=== PATIENT | female | born 1945 | race African-American/Black ===

== ENCOUNTER 2021-11-24 07:51 | Inpatient (IN) | payer MEDICARE, MEDICAID ==
[~2021-11-24] VITALS: Ht 162.6 cm; Wt 77.7 kg
[~2021-11-24 07:51] MED LIST: AMLO10TA80 PO; APIX5TAB MT; ASPI-1497 PO; ATOR40TA70 PO; DOCU-286 MT; LITH150C PO; METO25TA6 MT; NAPR-677 PO; RISP1SOL4 MT; RISP1TAB97 PO; SENN-257 PO; ZOLP10TA2 PO
[2021-11-24 08:37] LABS: BASOPHILS % 0.9 % (0.0-2.0); EOSINOPHILS % 4.8 % (0.0-5.0); HEMATOCRIT. 41.7 % (36.0-48.0); HEMOGLOBIN. 13.3 g/dL (12.0-16.0); LYMPHOCYTES % 23.3 % (20.0-50.0); MEAN CORPUSCULAR HEMOGLOBIN 27.3 pg (28.0-32.0); MEAN CORPUSCULAR VOLUME 85.8 fL (81.0-99.0); MEAN PLATELET VOLUME 10.2 fl (7.4-10.4); MONOCYTES % 10.2 % (2.0-8.0); NEUTROPHILS % 60.8 % (40.0-76.0); PLATELET 202 x1000/uL (130-400); RED BLOOD CELL COUNT 4.86 mill/uL (4.2-5.4); RED CELL DISTRIBUTION WIDTH 15.6 % (11.6-14.6)
[2021-11-24 08:40] LABS: CHLORIDE 110 mEq/L (98-107)
[2021-11-24] MEDS ORDERED: ASPIRIN 81MG TABLET PO NR (12:00)
[2021-11-24] MEDS: ACETAMINOPHEN 325MG TABLET PO NR ×2 (12:07→12:09)
[2021-11-24] MEDS ORDERED: ONDANSETRON HCL 4MG/2ML INJ IV PRN (14:15)
[2021-11-24] MEDS ORDERED: NALOXONE HCL 0.4MG/ML VIAL IV PRN (14:30)
[2021-11-24 15:19] VITALS: BP 130/57
[2021-11-24 16:00] VITALS: BP 130/57
[2021-11-24 18:36] LABS: PROTHROMBIN TIME 11.2 sec (9.6-11.0)
[2021-11-24 20:00] VITALS: BP 118/49
[2021-11-24] MEDS ORDERED: ENOXAPARIN 80MG/0.8ML SYR SUBCUT SCH (20:00)
[2021-11-24 20:40] LABS: CLARITY URINE CLEAR (CLEAR); COLOR URINE YELLOW (YELLOW); KETONES URINE TRACE (NEGATIVE); LEUKOCYTE ESTERASE URINE 1+ (NEGATIVE); NITRITE URINE NEGATIVE (NEGATIVE); OCCULT BLOOD URINE NEGATIVE (NEGATIVE); PROTEIN URINE TRACE (NEGATIVE); SPECIFIC GRAVITY URINE 1.018 (1.005-1.030)
[2021-11-24] MEDS: RISPERIDONE 1MG TABLET PO SCH (21:09)
[2021-11-24] MEDS: METOPROLOL TARTRATE 25MG TABLET PO SCH (21:09)
[2021-11-24] MEDS: ATORVASTATIN CALCIUM 40MG TABLET PO SCH (21:10)
[2021-11-24] MEDS: HYDROCODONE/ACETAMINOPHEN 5/325MG TABLET PO PRN (21:12)
[2021-11-24] MEDS: AMLODIPINE 10MG TABLET PO SCH (21:34)
[2021-11-25] VITALS: BP 126/67
[2021-11-25] MEDS: ZOLPIDEM TARTRATE 5MG TABLET PO PRN (00:36)
[2021-11-25 04:00] VITALS: BP 147/75
[2021-11-25 08:00] VITALS: BP 103/74
[2021-11-25] MEDS: ASPIRIN 81MG TABLET PO SCH ×2 (09:00→09:54)
[2021-11-25] MEDS: METOPROLOL TARTRATE 25MG TABLET PO SCH ×3 (09:00→21:00)
[2021-11-25] MEDS ORDERED: DOCUSATE SODIUM 100MG CAPSULE PO SCH (09:00)
[2021-11-25] MEDS: AMLODIPINE 10MG TABLET PO SCH ×2 (09:00→09:55)
[2021-11-25] MEDS: DOCUSATE SODIUM 250MG CAPSULE PO SCH ×2 (09:00→09:54)
[2021-11-25] MEDS: APIXABAN 5 MG TABLET PO SCH ×2 (09:56→17:41)
[2021-11-25 12:00] VITALS: BP 103/84
[2021-11-25 16:00] VITALS: BP_SYST 101; BP_SYST 104; BP_SYST 112; BP_DIAS 64; BP_DIAS 68
[2021-11-25 20:00] VITALS: BP 125/71
[2021-11-25] MEDS: ATORVASTATIN CALCIUM 40MG TABLET PO SCH ×2 (21:00→22:44)
[2021-11-25] MEDS: RISPERIDONE 1MG TABLET PO SCH ×2 (21:00→22:43)
[2021-11-25] MEDS: LORAZEPAM 2MG/ML CPJ IV PRN (23:28)
[2021-11-26] VITALS: BP 143/74
[2021-11-26] MEDS: ZOLPIDEM TARTRATE 5MG TABLET PO PRN (00:54)
[2021-11-26] MEDS: LORAZEPAM 2MG/ML CPJ IV PRN ×2 (00:57→09:16)
[2021-11-26 04:00] VITALS: BP 148/84
[2021-11-26 08:00] VITALS: BP 173/93
[2021-11-26] MEDS: DOCUSATE SODIUM 250MG CAPSULE PO SCH (09:05)
[2021-11-26] MEDS: ASPIRIN 81MG TABLET PO SCH (09:05)
[2021-11-26] MEDS: METOPROLOL TARTRATE 25MG TABLET PO SCH ×2 (09:05→21:00)
[2021-11-26] MEDS: AMLODIPINE 10MG TABLET PO SCH (09:05)
[2021-11-26] MEDS: APIXABAN 5 MG TABLET PO SCH ×2 (09:05→17:00)
[2021-11-26 12:00] VITALS: BP 116/56
[2021-11-26 16:00] VITALS: BP 122/72
[2021-11-26 20:00] VITALS: BP 168/84
[2021-11-26] MEDS: ATORVASTATIN CALCIUM 40MG TABLET PO SCH (21:00)
[2021-11-26] MEDS: RISPERIDONE 1MG TABLET PO SCH (21:00)
[2021-11-27] VITALS: BP 157/97
[2021-11-27 04:00] VITALS: BP 160/76
[2021-11-27 08:00] VITALS: BP 135/77
[2021-11-27] MEDS: DOCUSATE SODIUM 250MG CAPSULE PO SCH (09:02)
[2021-11-27] MEDS: AMLODIPINE 10MG TABLET PO SCH (09:02)
[2021-11-27] MEDS: ASPIRIN 81MG TABLET PO SCH (09:02)
[2021-11-27] MEDS: APIXABAN 5 MG TABLET PO SCH (09:03)
[2021-11-27] MEDS: METOPROLOL TARTRATE 25MG TABLET PO SCH (09:03)
[2021-11-27] MEDS: LORAZEPAM 2MG/ML CPJ IV PRN (10:45)
[2021-11-27] MEDS: HYDROCODONE/ACETAMINOPHEN 5/325MG TABLET PO PRN (10:56)
[2021-11-27 12:00] VITALS: BP 121/67
[2021-11-27 16:00] VITALS: BP 133/65
[2021-11-27 17:04] VITALS: BP 133/65
[2021-12-07] MEDS ORDERED: MELA5TAB19 MT (18:47)
[2021-12-07] MEDS ORDERED: CRES10 PO (18:47)
[2021-12-07] MEDS ORDERED: ESCI5SOL2 PO (18:47)
[2021-12-07] MEDS ORDERED: GABA-529 PO (18:47)
[2021-12-07] MEDS ORDERED: MOM MT (23:13)
[2021-12-07] MEDS ORDERED: GUAI-1192 PO (23:13)
== END 2021-11-27 19:30 | disposition home or self-care (01) | DRG 74 ==
LOC: ER 08:04 → 7WST 12:22 → ENRESERV 13:51
PROVIDERS: ADMIT Internal Medicine; ATTEND Internal Medicine
DX: G90.8 Other disorders of autonomic nervous system (principal); K80.20 Calculus of gallbladder without cholecystitis without obstruction; K59.00 Constipation, unspecified; E78.00 Pure hypercholesterolemia, unspecified; I48.91 Unspecified atrial fibrillation; F20.9 Schizophrenia, unspecified; F03.90 Unspecified dementia, unspecified severity, without behavioral disturbance, psychotic disturbance, mood disturbance, and anxiety; I11.0 Hypertensive heart disease with heart failure; I50.9 Heart failure, unspecified; I25.10 Atherosclerotic heart disease of native coronary artery without angina pectoris; F17.210 Nicotine dependence, cigarettes, uncomplicated; F31.9 Bipolar disorder, unspecified; Z20.822 Contact with and (suspected) exposure to COVID-19; Z95.1 Presence of aortocoronary bypass graft; Z86.73 Personal history of transient ischemic attack (TIA), and cerebral infarction without residual deficits; Z79.01 Long term (current) use of anticoagulants; Z98.890 Other specified postprocedural states; Z88.8 Allergy status to other drugs, medicaments and biological substances
CPT/HCPCS: 36415; 71045; 73030; 76700; 80053; 81003; 83880; 84484; 85025; 87426; 93005; 93306; 99285; J1650; J2060

== ENCOUNTER 2022-09-13 10:50 | Inpatient (IN) | payer MEDICARE, MEDICAID ==
[~2022-09-13] VITALS: Ht 165.1 cm; Wt 61.7 kg
[~2022-09-13 10:50] MED LIST changes: +ASPI-1406 PO; -ASPI-1497 PO; -ATOR40TA70 PO; +CRES10 PO; +ESCI5SOL2 PO; +FAMO40TA7 PO; +GABA-529 PO; +MELA1TAB51 MT; +MOM MT; -RISP1SOL4 MT; +[UNRECOGNIZED DRUG - CODE] PO
[2022-09-13] MEDS ORDERED: ONDANSETRON HCL 4MG/2ML INJ IV PRN (11:45)
[2022-09-13] MEDS ORDERED: NALOXONE HCL 0.4 MG/ML 1ML VIAL IV PRN (11:45)
[2022-09-13] MEDS ORDERED: HYDROCODONE/ACETAMINOPHEN 5/325MG TABLET PO PRN (11:45)
[2022-09-13] MEDS ORDERED: CLONIDINE 0.1MG TABLET PO PRN (11:45)
[2022-09-13] MEDS ORDERED: DOCUSATE SODIUM 100MG CAPSULE PO PRN (11:45)
[2022-09-13] MEDS ORDERED: IPRATROPIUM/ALBUTEROL 0.5-3(2.5)MG/3ML NEB HHN PRN (11:45)
[2022-09-13] MEDS ORDERED: GUAIFENESIN 200MG/10ML SUGAR FREE UDC PO PRN (11:45)
[2022-09-13] MEDS ORDERED: LORAZEPAM 0.5MG TABLET PO PRN (11:45)
[2022-09-13] MEDS ORDERED: MAGNESIUM/ALUMINUM HYDROXIDE/SIMETHICONE 30ML UDC PO PRN (11:45)
[2022-09-13] MEDS ORDERED: ACETAMINOPHEN 325MG TABLET PO PRN ×2 (11:45)
[2022-09-13 12:00] VITALS: BP 127/74; PULSE 84; RESP 19; TEMP 97.8
[2022-09-13] MEDS ORDERED: LORAZEPAM 2MG/ML CPJ IV NR (16:00)
[2022-09-13] MEDS ORDERED: HALOPERIDOL LACTATE 5MG/ML VIAL IM ONE (16:15)
[2022-09-13] MEDS ORDERED: LORAZEPAM 2MG/ML CPJ IV PRN (17:15)
[2022-09-13] MEDS ORDERED: LORAZEPAM 2MG/ML CPJ IM PRN (17:30)
[2022-09-13] MEDS ORDERED: LORAZEPAM 2MG/ML CPJ IM NR (17:45)
[2022-09-13 20:00] VITALS: BP 156/104; PULSE 101; RESP 19; TEMP 97.8
[2022-09-13] MEDS: ENOXAPARIN 60MG/0.6ML SYR SUBCUT SCH (21:00)
[2022-09-13] MEDS ORDERED: IOHEXOL-300 100 ML BOTTLE ONE (21:13)
[2022-09-13] MEDS: METOPROLOL TARTRATE 25MG TABLET PO SCH (21:48)
[2022-09-13] MEDS: LITHIUM CARBONATE 150 MG CAPSULE PO SCH (21:48)
[2022-09-13] MEDS: RISPERIDONE 1MG TABLET PO SCH (21:48)
[2022-09-13] MEDS: ATORVASTATIN CALCIUM 40MG TABLET PO SCH (21:48)
[2022-09-13] MEDS ORDERED: LACTULOSE 20G/30ML UDC PO SCH (22:00)
[2022-09-14 06:34] LABS: BASOPHILS % 0.2 % (0.0-2.0); EOSINOPHILS % 0.6 % (0.0-5.0); HEMOGLOBIN. 12.8 g/dL (12.0-16.0); LYMPHOCYTES % 8.1 % (20.0-50.0); MEAN CORPUSCULAR HEMOGLOBIN 28.9 pg (28.0-32.0); MEAN PLATELET VOLUME 11.9 fl (7.4-10.4); MONOCYTES % 11.2 % (2.0-8.0); NEUTROPHILS % 79.9 % (40.0-76.0); PLATELET 103 x1000/uL (130-400); RED BLOOD CELL COUNT 4.42 mill/uL (4.2-5.4); RED CELL DISTRIBUTION WIDTH 15.6 % (11.6-14.6)
[2022-09-14 06:56] LABS: CHLORIDE 110 mEq/L (98-107)
[2022-09-14 08:00] VITALS: BP 98/65; PULSE 76; RESP 18; TEMP 96.3
[2022-09-14] MEDS: PANTOPRAZOLE SODIUM 40 MG/VIAL IV SCH (08:51)
[2022-09-14] MEDS: RISPERIDONE 1MG TABLET PO SCH ×2 (08:52→21:45)
[2022-09-14] MEDS: POTASSIUM CHLORIDE 20MEQ/PACKET PO SCH (08:52)
[2022-09-14] MEDS: ENOXAPARIN 60MG/0.6ML SYR SUBCUT SCH ×2 (08:52→21:45)
[2022-09-14] MEDS: AMLODIPINE 10MG TABLET PO SCH (09:00)
[2022-09-14] MEDS: METOPROLOL TARTRATE 25MG TABLET PO SCH ×2 (09:00→21:45)
[2022-09-14] MEDS ORDERED: BISACODYL 5MG TABLET PO PRN (12:00)
[2022-09-14 12:50] LABS: HEPATITIS B SURFACE ANTIGEN NEGATIVE
[2022-09-14] MEDS: DOCUSATE SODIUM 100MG CAPSULE PO SCH ×2 (17:00→18:05)
[2022-09-14] MEDS: ATORVASTATIN CALCIUM 40MG TABLET PO SCH (21:45)
[2022-09-14] MEDS: LITHIUM CARBONATE 150 MG CAPSULE PO SCH (21:45)
[2022-09-15 06:30] LABS: BASOPHILS % 0.2 % (0.0-2.0); EOSINOPHILS % 2.5 % (0.0-5.0); HEMATOCRIT. 35.7 % (36.0-48.0); LYMPHOCYTES % 9.6 % (20.0-50.0); MEAN CORPUSCULAR HEMOGLOBIN 28.8 pg (28.0-32.0); MEAN CORPUSCULAR VOLUME 85.8 fL (81.0-99.0); MEAN PLATELET VOLUME 12.6 fl (7.4-10.4); MONOCYTES % 11.1 % (2.0-8.0); NEUTROPHILS % 76.6 % (40.0-76.0); PLATELET 116 x1000/uL (130-400); RED BLOOD CELL COUNT 4.16 mill/uL (4.2-5.4); RED CELL DISTRIBUTION WIDTH 15.1 % (11.6-14.6)
[2022-09-15 08:00] VITALS: BP 146/71; PULSE 66; RESP 20; TEMP 98.1
[2022-09-15] MEDS: RISPERIDONE 1MG TABLET PO SCH (08:47)
[2022-09-15] MEDS: PANTOPRAZOLE SODIUM 40 MG/VIAL IV SCH (08:47)
[2022-09-15] MEDS: AMLODIPINE 10MG TABLET PO SCH (08:48)
[2022-09-15] MEDS: DOCUSATE SODIUM 100MG CAPSULE PO SCH (08:48)
[2022-09-15] MEDS: METOPROLOL TARTRATE 25MG TABLET PO SCH (08:49)
[2022-09-15] MEDS: POTASSIUM CHLORIDE 20MEQ/PACKET PO SCH (08:50)
[2022-09-15] MEDS: ENOXAPARIN 60MG/0.6ML SYR SUBCUT SCH (08:50)
[2022-09-15 09:05] VITALS: RESP 20
[2022-09-15] MEDS ORDERED: LACTULOSE 20G/30ML UDC PO NR (09:30)
[2022-09-15 14:36] VITALS: BP 20/146; PULSE 66; TEMP 98.1; O2SAT 71
== END 2022-09-15 16:40 | disposition short-term general hospital (02) | DRG 71 ==
PROVIDERS: ADMIT Psychiatry & Neurology Neurology; ATTEND Internal Medicine
DX: G93.41 Metabolic encephalopathy (principal); E44.1 Mild protein-calorie malnutrition; F03.93 Unspecified dementia, unspecified severity, with mood disturbance; K80.10 Calculus of gallbladder with chronic cholecystitis without obstruction; F17.210 Nicotine dependence, cigarettes, uncomplicated; F20.9 Schizophrenia, unspecified; F31.9 Bipolar disorder, unspecified; I11.0 Hypertensive heart disease with heart failure; I25.10 Atherosclerotic heart disease of native coronary artery without angina pectoris; I48.91 Unspecified atrial fibrillation; I50.9 Heart failure, unspecified; E78.5 Hyperlipidemia, unspecified; I65.23 Occlusion and stenosis of bilateral carotid arteries; K21.9 Gastro-esophageal reflux disease without esophagitis; K59.00 Constipation, unspecified; K57.90 Diverticulosis of intestine, part unspecified, without perforation or abscess without bleeding; I95.9 Hypotension, unspecified; K76.9 Liver disease, unspecified; R13.10 Dysphagia, unspecified; R62.7 Adult failure to thrive; Z86.73 Personal history of transient ischemic attack (TIA), and cerebral infarction without residual deficits; Z95.1 Presence of aortocoronary bypass graft; Z88.8 Allergy status to other drugs, medicaments and biological substances; Z88.5 Allergy status to narcotic agent; Z68.22 Body mass index [BMI] 22.0-22.9, adult
CPT/HCPCS: 36415; 74177; 74181; 76700; 78227; 80048; 80053; 80076; 82105; 82248; 82378; 85025; 86301; 86705; 86709; 86803; 87340; 92523; 92610; 97162; 97166; 97530; 97535; C9113; J1650; J2060; J2405; Q9967

== ENCOUNTER 2022-09-15 16:45 | Inpatient (IN) | payer MEDICARE, MEDICAID ==
[~2022-09-15] VITALS: Ht 165.1 cm; Wt 61.7 kg
[~2022-09-15 16:45] MED LIST changes: -NAPR-677 PO
[2022-09-15 17:00] VITALS: BP 125/60; PULSE 87; RESP 18; TEMP 98.1
[2022-09-15 18:31] VITALS: BP 125/60; PULSE 87; RESP 20; TEMP 98.1
[2022-09-15] MEDS ORDERED: HYDROCODONE/ACETAMINOPHEN 5/325MG TABLET PO PRN (18:45)
[2022-09-15] MEDS: LORAZEPAM 0.5MG TABLET PO PRN (18:54)
[2022-09-15] MEDS ORDERED: NALOXONE HCL 0.4MG/ML VIAL IV PRN (19:00)
[2022-09-15] MEDS ORDERED: DOCUSATE SODIUM 100MG CAPSULE PO PRN (19:45)
[2022-09-15] MEDS ORDERED: GUAIFENESIN 200MG/10ML SUGAR FREE UDC PO PRN (19:45)
[2022-09-15] MEDS ORDERED: MAGNESIUM/ALUMINUM HYDROXIDE/SIMETHICONE 30ML UDC PO PRN (19:45)
[2022-09-15] MEDS ORDERED: CLONIDINE 0.1MG TABLET PO PRN (19:45)
[2022-09-15] MEDS ORDERED: NALOXONE HCL 0.4 MG/ML 1ML VIAL IV PRN (19:45)
[2022-09-15] MEDS ORDERED: ONDANSETRON HCL 4MG/2ML INJ IV PRN (19:45)
[2022-09-15] MEDS ORDERED: IPRATROPIUM/ALBUTEROL 0.5-3(2.5)MG/3ML NEB HHN PRN (19:45)
[2022-09-15] MEDS ORDERED: BISACODYL 5MG TABLET PO PRN (19:45)
[2022-09-15 20:00] VITALS: BP 183/97; PULSE 101; RESP 22; TEMP 97.8
[2022-09-15] MEDS ORDERED: CEFTRIAXONE 1GM PREMIX 50 ML IV SCH (21:00)
[2022-09-15] MEDS: RISPERIDONE 1MG TABLET PO SCH (22:40)
[2022-09-15] MEDS: ATORVASTATIN CALCIUM 40MG TABLET PO SCH (22:41)
[2022-09-15] MEDS: LITHIUM CARBONATE 150 MG CAPSULE PO SCH (22:41)
[2022-09-15] MEDS: CEFTRIAXONE 1,000 MG in DEXTROSE 5% WATER 50 ML IV SCH (22:43)
[2022-09-15] MEDS: METRONIDAZOLE 500 MG PREMIX 100 ML IV SCH (22:44)
[2022-09-15] MEDS: ENOXAPARIN 60MG/0.6ML SYR SUBCUT SCH (22:45)
[2022-09-15] MEDS: DEXT 5%/0.9% NACL 1,000 ML IV SCH (22:46)
[2022-09-15] MEDS: METOPROLOL TARTRATE 25MG TABLET PO SCH (22:50)
[2022-09-16] VITALS: BP 179/111; PULSE 106; RESP 18; TEMP 97.8
[2022-09-16] MEDS: LORAZEPAM 2MG/ML CPJ IV PRN ×2 (02:11→09:26)
[2022-09-16 04:00] VITALS: BP 101/66; PULSE 96; RESP 20; TEMP 97.2
[2022-09-16 06:30] LABS: BASOPHILS % 0.8 % (0.0-2.0); EOSINOPHILS % 1.9 % (0.0-5.0); HEMATOCRIT. 36.4 % (36.0-48.0); HEMOGLOBIN. 12.4 g/dL (12.0-16.0); LYMPHOCYTES % 12.2 % (20.0-50.0); MEAN CORPUSCULAR HEMOGLOBIN 29.4 pg (28.0-32.0); MEAN CORPUSCULAR VOLUME 86.3 fL (81.0-99.0); MONOCYTES % 13.8 % (2.0-8.0); NEUTROPHILS % 71.3 % (40.0-76.0); RED BLOOD CELL COUNT 4.22 mill/uL (4.2-5.4); RED CELL DISTRIBUTION WIDTH 14.8 % (11.6-14.6)
[2022-09-16] MEDS: METRONIDAZOLE 500 MG PREMIX 100 ML IV SCH ×2 (06:32→13:35)
[2022-09-16 06:50] LABS: CHLORIDE 111 mEq/L (98-107)
[2022-09-16 08:00] VITALS: BP 198/132; PULSE 110; RESP 18; TEMP 98.2
[2022-09-16 08:13] LABS: PLATELET 136 x1000/uL (130-400)
[2022-09-16] MEDS: RISPERIDONE 1MG TABLET PO SCH ×2 (09:23→21:01)
[2022-09-16] MEDS: DOCUSATE SODIUM 100MG CAPSULE PO SCH ×2 (09:23→21:02)
[2022-09-16] MEDS: METOPROLOL TARTRATE 25MG TABLET PO SCH ×2 (09:25→21:02)
[2022-09-16] MEDS: AMLODIPINE 10MG TABLET PO SCH (09:26)
[2022-09-16] MEDS: PANTOPRAZOLE SODIUM 40 MG/VIAL IV SCH (09:26)
[2022-09-16] MEDS: DEXT 5%/0.9% NACL 1,000 ML IV SCH (09:27)
[2022-09-16 12:00] VITALS: BP 116/64; PULSE 62; RESP 20; TEMP 98.5
[2022-09-16] MEDS ORDERED: HYDRALAZINE 20MG/ML VIAL IV PRN (12:45)
[2022-09-16] MEDS: ENOXAPARIN 60MG/0.6ML SYR SUBCUT SCH (13:34)
[2022-09-16 16:00] VITALS: BP 139/99; PULSE 110; RESP 20; TEMP 98
[2022-09-16] MEDS: LORAZEPAM 0.5MG TABLET PO PRN (16:08)
[2022-09-16 20:00] VITALS: BP 119/82; PULSE 96; RESP 19; TEMP 97.8
[2022-09-16] MEDS: CEFTRIAXONE 1,000 MG in DEXTROSE 5% WATER 50 ML IV SCH (21:00)
[2022-09-16] MEDS: ATORVASTATIN CALCIUM 40MG TABLET PO SCH (21:00)
[2022-09-16] MEDS: LITHIUM CARBONATE 150 MG CAPSULE PO SCH (21:01)
[2022-09-17] VITALS: BP 111/67; PULSE 65; RESP 18; TEMP 97.4
[2022-09-17] MEDS: METRONIDAZOLE 500 MG PREMIX 100 ML IV SCH ×4 (00:10→21:48)
[2022-09-17] MEDS: DEXT 5%/0.9% NACL 1,000 ML IV SCH ×3 (00:11→21:50)
[2022-09-17] MEDS: ENOXAPARIN 60MG/0.6ML SYR SUBCUT SCH ×3 (00:11→21:48)
[2022-09-17 04:00] VITALS: BP 144/70; PULSE 69; RESP 19; TEMP 97.9
[2022-09-17 08:00] VITALS: BP 148/60; PULSE 60; RESP 20; TEMP 97.8
[2022-09-17] MEDS: DOCUSATE SODIUM 100MG CAPSULE PO SCH ×2 (09:29→16:51)
[2022-09-17] MEDS: AMLODIPINE 10MG TABLET PO SCH (09:29)
[2022-09-17] MEDS: PANTOPRAZOLE SODIUM 40 MG/VIAL IV SCH (09:30)
[2022-09-17] MEDS: RISPERIDONE 1MG TABLET PO SCH ×2 (09:30→21:48)
[2022-09-17] MEDS: METOPROLOL TARTRATE 25MG TABLET PO SCH ×2 (09:30→21:48)
[2022-09-17 12:00] VITALS: BP 130/63; PULSE 54; RESP 18; TEMP 96.8
[2022-09-17] MEDS: LORAZEPAM 2MG/ML CPJ IV PRN (15:18)
[2022-09-17 16:00] VITALS: BP 140/65; PULSE 70; RESP 18; TEMP 97.6
[2022-09-17] MEDS: FLUOXETINE HCL 10 MG CAPSULE PO SCH (16:52)
[2022-09-17] MEDS: ACETAMINOPHEN 325MG TABLET PO PRN (18:24)
[2022-09-17 20:00] VITALS: BP 109/85; PULSE 101; RESP 18; TEMP 98.3
[2022-09-17] MEDS: CEFTRIAXONE 1,000 MG in DEXTROSE 5% WATER 50 ML IV SCH (21:47)
[2022-09-17] MEDS: LORAZEPAM 0.5MG TABLET PO PRN (21:49)
[2022-09-17] MEDS: LITHIUM CARBONATE 150 MG CAPSULE PO SCH (21:49)
[2022-09-17] MEDS: ATORVASTATIN CALCIUM 40MG TABLET PO SCH (21:49)
[2022-09-18] VITALS: BP 127/65; PULSE 67; RESP 19; TEMP 97.7
[2022-09-18] MEDS: LORAZEPAM 2MG/ML CPJ IV PRN ×2 (01:48→08:36)
[2022-09-18 04:00] VITALS: BP 136/70; PULSE 61; RESP 19; TEMP 97.7
[2022-09-18 06:34] LABS: BASOPHILS % 0.7 % (0.0-2.0); EOSINOPHILS % 3.6 % (0.0-5.0); HEMATOCRIT. 38.5 % (36.0-48.0); HEMOGLOBIN. 12.3 g/dL (12.0-16.0); MEAN CORPUSCULAR HEMOGLOBIN 28.5 pg (28.0-32.0); MEAN CORPUSCULAR VOLUME 89.6 fL (81.0-99.0); MEAN PLATELET VOLUME 10.8 fl (7.4-10.4); MONOCYTES % 13.2 % (2.0-8.0); NEUTROPHILS % 60.5 % (40.0-76.0); PLATELET 164 x1000/uL (130-400); RED CELL DISTRIBUTION WIDTH 15.9 % (11.6-14.6)
[2022-09-18] MEDS: METRONIDAZOLE 500 MG PREMIX 100 ML IV SCH ×2 (06:49→16:51)
[2022-09-18 07:19] LABS: CHLORIDE 114 mEq/L (98-107)
[2022-09-18 08:00] VITALS: BP 148/71; PULSE 58; RESP 20; TEMP 97.6
[2022-09-18] MEDS ORDERED: FAMOTIDINE 20MG/2ML VIAL IV SCH (09:00)
[2022-09-18 12:00] VITALS: BP 137/69; PULSE 58; RESP 20; TEMP 97.9
[2022-09-18] MEDS: RISPERIDONE 1MG TABLET PO SCH ×2 (12:02→22:15)
[2022-09-18] MEDS: AMLODIPINE 10MG TABLET PO SCH (12:02)
[2022-09-18] MEDS: ENOXAPARIN 60MG/0.6ML SYR SUBCUT SCH ×2 (12:02→22:16)
[2022-09-18] MEDS: FLUOXETINE HCL 10 MG CAPSULE PO SCH (12:02)
[2022-09-18] MEDS: DOCUSATE SODIUM 100MG CAPSULE PO SCH ×2 (12:02→16:51)
[2022-09-18 16:00] VITALS: BP 128/79; PULSE 61; RESP 18; TEMP 97.9
[2022-09-18] MEDS: DEXT 5%/0.9% NACL 1,000 ML IV SCH (17:12)
[2022-09-18 20:00] VITALS: BP 159/90; PULSE 115; RESP 19; TEMP 98.7
[2022-09-18] MEDS: LITHIUM CARBONATE 150 MG CAPSULE PO SCH (22:15)
[2022-09-18] MEDS: METRONIDAZOLE 500MG TABLET PO SCH (22:15)
[2022-09-18] MEDS: CEFTRIAXONE 1,000 MG in DEXTROSE 5% WATER 50 ML IV SCH (22:16)
[2022-09-18] MEDS: ATORVASTATIN CALCIUM 40MG TABLET PO SCH (22:16)
[2022-09-18] MEDS: LORAZEPAM 0.5MG TABLET PO PRN (22:18)
[2022-09-19] VITALS: BP 113/68; PULSE 66; RESP 18; TEMP 98
[2022-09-19 04:00] VITALS: BP 138/90; PULSE 90; RESP 19; TEMP 97.2
[2022-09-19] MEDS: METRONIDAZOLE 500MG TABLET PO SCH ×3 (06:24→22:10)
[2022-09-19] MEDS: DEXT 5%/0.9% NACL 1,000 ML IV SCH ×2 (06:24→16:16)
[2022-09-19 08:00] VITALS: BP 128/76; PULSE 86; RESP 18; TEMP 98.1
[2022-09-19] MEDS: FLUOXETINE HCL 10 MG CAPSULE PO SCH (08:52)
[2022-09-19] MEDS: DOCUSATE SODIUM 100MG CAPSULE PO SCH ×2 (08:52→16:20)
[2022-09-19] MEDS: RISPERIDONE 1MG TABLET PO SCH ×2 (08:52→22:10)
[2022-09-19] MEDS: ENOXAPARIN 60MG/0.6ML SYR SUBCUT SCH ×2 (08:53→22:14)
[2022-09-19] MEDS: AMLODIPINE 10MG TABLET PO SCH (08:55)
[2022-09-19] MEDS: LORAZEPAM 0.5MG TABLET PO PRN (08:57)
[2022-09-19 12:00] VITALS: BP 110/62; PULSE 65; RESP 18; TEMP 98.9
[2022-09-19 16:00] VITALS: BP 118/75; PULSE 70; RESP 20; TEMP 98.6
[2022-09-19] MEDS: LORAZEPAM 2MG/ML CPJ IV PRN (19:10)
[2022-09-19] MEDS: CEFTRIAXONE 1,000 MG in DEXTROSE 5% WATER 50 ML IV SCH (20:00)
[2022-09-19 20:53] VITALS: BP 156/83; PULSE 91; RESP 20; TEMP 97.2
[2022-09-19] MEDS: ATORVASTATIN CALCIUM 40MG TABLET PO SCH (22:09)
[2022-09-19] MEDS: LITHIUM CARBONATE 150 MG CAPSULE PO SCH (22:10)
[2022-09-20 04:00] VITALS: BP 104/60; PULSE 70; RESP 20; TEMP 96.6
[2022-09-20] MEDS: DEXT 5%/0.9% NACL 1,000 ML IV SCH (05:59)
[2022-09-20] MEDS: METRONIDAZOLE 500MG TABLET PO SCH ×3 (05:59→21:19)
[2022-09-20 08:00] VITALS: BP 115/62; PULSE 85; RESP 20; TEMP 97.6
[2022-09-20 08:07] LABS: CHLORIDE 114 mEq/L (98-107)
[2022-09-20 08:15] LABS: BASOPHILS % 0.8 % (0.0-2.0); HEMATOCRIT. 37.1 % (36.0-48.0); HEMOGLOBIN. 12.5 g/dL (12.0-16.0); MEAN CORPUSCULAR HEMOGLOBIN 29.1 pg (28.0-32.0); MEAN CORPUSCULAR VOLUME 86.6 fL (81.0-99.0); NEUTROPHILS % 53.2 % (40.0-76.0); RED BLOOD CELL COUNT 4.28 mill/uL (4.2-5.4); RED CELL DISTRIBUTION WIDTH 15.2 % (11.6-14.6)
[2022-09-20] MEDS: AMLODIPINE 10MG TABLET PO SCH (08:59)
[2022-09-20] MEDS: FAMOTIDINE 20MG TABLET PO SCH (09:00)
[2022-09-20] MEDS: DOCUSATE SODIUM 100MG CAPSULE PO SCH ×2 (09:00→16:54)
[2022-09-20] MEDS: RISPERIDONE 1MG TABLET PO SCH ×2 (09:00→21:19)
[2022-09-20] MEDS: FLUOXETINE HCL 10 MG CAPSULE PO SCH (09:01)
[2022-09-20] MEDS: ENOXAPARIN 60MG/0.6ML SYR SUBCUT SCH ×2 (09:01→21:21)
[2022-09-20 12:00] VITALS: BP 114/39; PULSE 51; RESP 22; TEMP 98
[2022-09-20 16:00] VITALS: BP 117/70; PULSE 86; RESP 20; TEMP 97.3
[2022-09-20 20:00] VITALS: BP 144/72; PULSE 78; RESP 19; TEMP 98.4
[2022-09-20] MEDS: CEFTRIAXONE 1,000 MG in DEXTROSE 5% WATER 50 ML IV SCH (20:00)
[2022-09-20] MEDS: LITHIUM CARBONATE 150 MG CAPSULE PO SCH (21:19)
[2022-09-20] MEDS: ATORVASTATIN CALCIUM 40MG TABLET PO SCH (21:19)
[2022-09-21] VITALS: BP 124/69; PULSE 80; RESP 19; TEMP 98.5
[2022-09-21 04:00] VITALS: BP 164/78; PULSE 77; RESP 19; TEMP 98.8
[2022-09-21] MEDS: METRONIDAZOLE 500MG TABLET PO SCH ×3 (06:26→22:09)
[2022-09-21 08:00] VITALS: BP 134/72; PULSE 72; RESP 20; TEMP 98
[2022-09-21] MEDS: AMLODIPINE 10MG TABLET PO SCH (10:12)
[2022-09-21] MEDS: FAMOTIDINE 20MG TABLET PO SCH (10:12)
[2022-09-21] MEDS: ENOXAPARIN 60MG/0.6ML SYR SUBCUT SCH ×2 (10:13→20:40)
[2022-09-21] MEDS: RISPERIDONE 1MG TABLET PO SCH ×2 (10:13→20:38)
[2022-09-21] MEDS: FLUOXETINE HCL 10 MG CAPSULE PO SCH (10:13)
[2022-09-21] MEDS: DOCUSATE SODIUM 100MG CAPSULE PO SCH ×2 (10:13→16:57)
[2022-09-21] MEDS: DEXT 5%/0.9% NACL 1,000 ML IV SCH ×2 (10:32→22:11)
[2022-09-21 12:00] VITALS: BP 117/56; PULSE 59; RESP 18; TEMP 97.5
[2022-09-21 16:00] VITALS: BP 122/54; PULSE 89; RESP 20; TEMP 97.9
[2022-09-21 20:00] VITALS: BP 156/54; PULSE 92; RESP 20; TEMP 98.2
[2022-09-21] MEDS: CEFTRIAXONE 1,000 MG in DEXTROSE 5% WATER 50 ML IV SCH (20:37)
[2022-09-21] MEDS: LITHIUM CARBONATE 150 MG CAPSULE PO SCH (20:38)
[2022-09-21] MEDS: ATORVASTATIN CALCIUM 40MG TABLET PO SCH (20:38)
[2022-09-22] VITALS (7 sets, daily range): BP systolic 132–149; BP diastolic 53–72; PULSE 60–89; RESP 18–20; TEMP 96.9–98.3; O2SAT 95
[2022-09-22] MEDS ORDERED: TRAZODONE HCL 50MG TABLET PO SCH
[2022-09-22] MEDS: METRONIDAZOLE 500MG TABLET PO SCH ×2 (05:21→14:04)
[2022-09-22] MEDS: ENOXAPARIN 60MG/0.6ML SYR SUBCUT SCH (08:03)
[2022-09-22] MEDS: DOCUSATE SODIUM 100MG CAPSULE PO SCH ×2 (08:03→16:07)
[2022-09-22] MEDS: FAMOTIDINE 20MG TABLET PO SCH (08:04)
[2022-09-22] MEDS: AMLODIPINE 10MG TABLET PO SCH (08:04)
[2022-09-22] MEDS: RISPERIDONE 1MG TABLET PO SCH (08:04)
[2022-09-22] MEDS: FLUOXETINE HCL 10 MG CAPSULE PO SCH (08:04)
[2022-09-22] MEDS: ACETAMINOPHEN 325MG TABLET PO PRN (11:23)
[2022-09-22] MEDS: DEXT 5%/0.9% NACL 1,000 ML IV SCH (11:35)
== END 2022-09-22 18:37 | DRG 444 ==
LOC: 7WST 16:45 → UNDODISIN 09-17 10:35
PROVIDERS: ADMIT Internal Medicine; ATTEND Internal Medicine
PROC: 02HV33Z Insertion of Infusion Device into Superior Vena Cava, Percutaneous Approach (ICD-10-PCS; principal; 2022-09-21)
PROC: B5181ZA Fluoroscopy of Superior Vena Cava using Low Osmolar Contrast, Guidance (ICD-10-PCS; 2022-09-21)
PROC: B548ZZA Ultrasonography of Superior Vena Cava, Guidance (ICD-10-PCS; 2022-09-21)
DX: K80.00 Calculus of gallbladder with acute cholecystitis without obstruction (principal); G93.41 Metabolic encephalopathy; R47.01 Aphasia; K57.90 Diverticulosis of intestine, part unspecified, without perforation or abscess without bleeding; K76.9 Liver disease, unspecified; F03.90 Unspecified dementia, unspecified severity, without behavioral disturbance, psychotic disturbance, mood disturbance, and anxiety; I25.10 Atherosclerotic heart disease of native coronary artery without angina pectoris; I65.29 Occlusion and stenosis of unspecified carotid artery; F20.9 Schizophrenia, unspecified; F31.9 Bipolar disorder, unspecified; I50.9 Heart failure, unspecified; I11.0 Hypertensive heart disease with heart failure; R26.9 Unspecified abnormalities of gait and mobility; I48.0 Paroxysmal atrial fibrillation; R13.10 Dysphagia, unspecified; K21.9 Gastro-esophageal reflux disease without esophagitis; K59.00 Constipation, unspecified; E78.00 Pure hypercholesterolemia, unspecified; Z79.01 Long term (current) use of anticoagulants; Z95.1 Presence of aortocoronary bypass graft; Z86.73 Personal history of transient ischemic attack (TIA), and cerebral infarction without residual deficits
CPT/HCPCS: 36415; 36573; 80048; 80053; 80178; 82962; 83735; 83880; 84443; 84484; 85025; 93005; 97162; C1725; C1769; C1892; C1893; C9113; J0696; J1650; J2060; J3490; J7042; J7060; A4315

== ENCOUNTER 2022-09-22 18:33 | Inpatient (IN) | payer MEDICARE, MEDICAID ==
[~2022-09-22] VITALS: Ht 165.1 cm; Wt 61.2 kg
[2022-09-22] MEDS ORDERED: DOCUSATE SODIUM 100MG CAPSULE PO PRN (19:45)
[2022-09-22] MEDS ORDERED: GUAIFENESIN 200MG/10ML SUGAR FREE UDC PO PRN (19:45)
[2022-09-22] MEDS ORDERED: BISACODYL 5MG TABLET PO PRN (19:45)
[2022-09-22] MEDS ORDERED: CLONIDINE 0.1MG TABLET PO PRN (19:45)
[2022-09-22] MEDS ORDERED: MAGNESIUM/ALUMINUM HYDROXIDE/SIMETHICONE 30ML UDC PO PRN (19:45)
[2022-09-22] MEDS ORDERED: ONDANSETRON HCL 4MG/2ML INJ IV PRN (19:45)
[2022-09-22] MEDS ORDERED: LACTULOSE 20G/30ML UDC PO PRN (19:45)
[2022-09-22] MEDS ORDERED: IPRATROPIUM/ALBUTEROL 0.5-3(2.5)MG/3ML NEB HHN PRN (19:45)
[2022-09-22 20:00] VITALS: BP 156/67; PULSE 74; RESP 18; TEMP 97.9
[2022-09-22 20:05] VITALS: BP 156/67; PULSE 74; RESP 18; TEMP 97.9
[2022-09-22] MEDS: LITHIUM CARBONATE 150 MG CAPSULE PO SCH (20:54)
[2022-09-22] MEDS: ATORVASTATIN CALCIUM 40MG TABLET PO SCH (20:54)
[2022-09-22] MEDS: ENOXAPARIN 60MG/0.6ML SYR SUBCUT SCH (20:54)
[2022-09-22] MEDS: RISPERIDONE 1MG TABLET PO SCH (20:54)
[2022-09-22] MEDS: TRAZODONE HCL 50MG TABLET PO SCH (20:54)
[2022-09-22] MEDS: CEFTRIAXONE 1,000 MG in DEXTROSE 5% WATER 50 ML IV SCH (21:32)
[2022-09-22] MEDS: METRONIDAZOLE 500MG TABLET PO SCH (21:34)
[2022-09-23] MEDS: METRONIDAZOLE 500MG TABLET PO SCH ×3 (05:18→21:03)
[2022-09-23 05:25] LABS: BASOPHILS % 0.9 % (0.0-2.0); HEMATOCRIT. 33.7 % (36.0-48.0); HEMOGLOBIN. 10.8 g/dL (12.0-16.0); LYMPHOCYTES % 24.1 % (20.0-50.0); MEAN CORPUSCULAR HEMOGLOBIN 28.2 pg (28.0-32.0); MEAN CORPUSCULAR VOLUME 87.6 fL (81.0-99.0); MEAN PLATELET VOLUME 11.2 fl (7.4-10.4); MONOCYTES % 12.1 % (2.0-8.0); NEUTROPHILS % 59.9 % (40.0-76.0); PLATELET 173 x1000/uL (130-400); RED BLOOD CELL COUNT 3.84 mill/uL (4.2-5.4); RED CELL DISTRIBUTION WIDTH 15.7 % (11.6-14.6)
[2022-09-23 05:44] LABS: CHLORIDE 112 mEq/L (98-107)
[2022-09-23 08:00] VITALS: BP 131/72; PULSE 79; RESP 18; TEMP 97.2
[2022-09-23] MEDS: ACETAMINOPHEN 325MG TABLET PO PRN ×2 (10:33→17:29)
[2022-09-23] MEDS: DOCUSATE SODIUM 100MG CAPSULE PO SCH ×2 (10:34→17:00)
[2022-09-23] MEDS: FLUOXETINE HCL 10 MG CAPSULE PO SCH (10:34)
[2022-09-23] MEDS: FAMOTIDINE 20MG TABLET PO SCH (10:34)
[2022-09-23] MEDS: RISPERIDONE 1MG TABLET PO SCH ×2 (10:34→21:03)
[2022-09-23] MEDS: AMLODIPINE 10MG TABLET PO SCH (10:35)
[2022-09-23] MEDS: ENOXAPARIN 60MG/0.6ML SYR SUBCUT SCH ×2 (10:35→21:03)
[2022-09-23] MEDS ORDERED: POTASSIUM CHLORIDE 20MEQ TABLET SR PO NR (11:30)
[2022-09-23 20:13] VITALS: BP 141/66; PULSE 68; RESP 20; TEMP 98.1
[2022-09-23] MEDS: ATORVASTATIN CALCIUM 40MG TABLET PO SCH (20:59)
[2022-09-23] MEDS: TRAZODONE HCL 50MG TABLET PO SCH (20:59)
[2022-09-23] MEDS: CEFTRIAXONE 1,000 MG in DEXTROSE 5% WATER 50 ML IV SCH (21:00)
[2022-09-23] MEDS: LITHIUM CARBONATE 150 MG CAPSULE PO SCH (21:03)
[2022-09-24 01:49] LABS: CLARITY URINE CLEAR (CLEAR); COLOR URINE YELLOW (YELLOW); KETONES URINE NEGATIVE (NEGATIVE); LEUKOCYTE ESTERASE URINE TRACE (NEGATIVE); NITRITE URINE NEGATIVE (NEGATIVE); OCCULT BLOOD URINE NEGATIVE (NEGATIVE); PROTEIN URINE NEGATIVE (NEGATIVE); SPECIFIC GRAVITY URINE 1.009 (1.005-1.030); UROBILINOGEN URINE 0.2 E.U./dL (0.2-1.0)
[2022-09-24] MEDS: ACETAMINOPHEN 325MG TABLET PO PRN ×2 (02:40→22:48)
[2022-09-24] MEDS: METRONIDAZOLE 500MG TABLET PO SCH ×3 (06:55→22:48)
[2022-09-24 07:40] LABS: CHLORIDE 112 mEq/L (98-107)
[2022-09-24 07:52] LABS: EOSINOPHILS % 3.4 % (0.0-5.0); HEMATOCRIT. 32.5 % (36.0-48.0); HEMOGLOBIN. 10.5 g/dL (12.0-16.0); LYMPHOCYTES % 29.6 % (20.0-50.0); MEAN CORPUSCULAR HEMOGLOBIN 28.9 pg (28.0-32.0); MEAN CORPUSCULAR VOLUME 89.3 fL (81.0-99.0); MEAN PLATELET VOLUME 10.6 fl (7.4-10.4); MONOCYTES % 12.6 % (2.0-8.0); NEUTROPHILS % 53.4 % (40.0-76.0); PLATELET 183 x1000/uL (130-400); RED BLOOD CELL COUNT 3.64 mill/uL (4.2-5.4); RED CELL DISTRIBUTION WIDTH 16.1 % (11.6-14.6)
[2022-09-24 07:58] LABS: TOTAL IRON BINDING CAPACITY 190 ug/dL (250-450)
[2022-09-24 08:00] VITALS: BP 136/74; PULSE 87; RESP 20; TEMP 97.2
[2022-09-24] MEDS: DOCUSATE SODIUM 100MG CAPSULE PO SCH ×2 (08:01→16:26)
[2022-09-24] MEDS: ENOXAPARIN 60MG/0.6ML SYR SUBCUT SCH ×3 (08:02→22:01)
[2022-09-24] MEDS: FAMOTIDINE 20MG TABLET PO SCH (08:02)
[2022-09-24] MEDS: FLUOXETINE HCL 10 MG CAPSULE PO SCH (08:02)
[2022-09-24] MEDS: AMLODIPINE 10MG TABLET PO SCH (08:02)
[2022-09-24] MEDS: RISPERIDONE 1MG TABLET PO SCH ×2 (08:02→22:01)
[2022-09-24 08:29] LABS: FOLIC ACID (FOLATE) SERUM 8.8 ng/mL (>5.38)
[2022-09-24 20:00] VITALS: BP 154/70; PULSE 70; RESP 18; TEMP 99.1
[2022-09-24] MEDS: ATORVASTATIN CALCIUM 40MG TABLET PO SCH (22:01)
[2022-09-24] MEDS: TRAZODONE HCL 50MG TABLET PO SCH (22:01)
[2022-09-24] MEDS: LITHIUM CARBONATE 150 MG CAPSULE PO SCH (22:01)
[2022-09-24] MEDS: CEFTRIAXONE 1,000 MG in DEXTROSE 5% WATER 50 ML IV SCH (22:16)
[2022-09-24] MEDS: LACTULOSE 20G/30ML UDC PO SCH (22:48)
[2022-09-25] MEDS: LACTULOSE 20G/30ML UDC PO SCH ×3 (06:36→22:26)
[2022-09-25] MEDS: METRONIDAZOLE 500MG TABLET PO SCH ×3 (06:36→22:26)
[2022-09-25 06:45] LABS: BASOPHILS % 0.5 % (0.0-2.0); EOSINOPHILS % 3.2 % (0.0-5.0); HEMATOCRIT. 33.9 % (36.0-48.0); HEMOGLOBIN. 11.3 g/dL (12.0-16.0); LYMPHOCYTES % 22.4 % (20.0-50.0); MEAN CORPUSCULAR HEMOGLOBIN 28.8 pg (28.0-32.0); MEAN CORPUSCULAR VOLUME 86.9 fL (81.0-99.0); MEAN PLATELET VOLUME 10.4 fl (7.4-10.4); MONOCYTES % 13.7 % (2.0-8.0); NEUTROPHILS % 60.2 % (40.0-76.0); PLATELET 171 x1000/uL (130-400); RED CELL DISTRIBUTION WIDTH 16.3 % (11.6-14.6)
[2022-09-25 07:10] LABS: CHLORIDE 111 mEq/L (98-107)
[2022-09-25] MEDS: ENOXAPARIN 60MG/0.6ML SYR SUBCUT SCH ×2 (07:45→20:14)
[2022-09-25] MEDS: FAMOTIDINE 20MG TABLET PO SCH (07:45)
[2022-09-25] MEDS: DOCUSATE SODIUM 100MG CAPSULE PO SCH ×2 (07:46→18:00)
[2022-09-25] MEDS: RISPERIDONE 1MG TABLET PO SCH ×2 (07:46→20:13)
[2022-09-25] MEDS: FLUOXETINE HCL 10 MG CAPSULE PO SCH (07:46)
[2022-09-25 07:57] VITALS: BP 130/85; PULSE 97; RESP 18; TEMP 97.5
[2022-09-25] MEDS: AMLODIPINE 10MG TABLET PO SCH (09:22)
[2022-09-25] MEDS ORDERED: QUETIAPINE FUMARATE 25MG TABLET PO PRN (13:00)
[2022-09-25] MEDS: ACETAMINOPHEN 325MG TABLET PO PRN (14:33)
[2022-09-25] MEDS ORDERED: LACTULOSE 20G/30ML UDC PO NR (16:00)
[2022-09-25 20:00] VITALS: BP 186/90; PULSE 85; RESP 17; TEMP 97
[2022-09-25] MEDS: TRAZODONE HCL 50MG TABLET PO SCH (20:13)
[2022-09-25] MEDS: LITHIUM CARBONATE 150 MG CAPSULE PO SCH (20:13)
[2022-09-25] MEDS: ERGOCALCIFEROL 50000UNITS CAPSULE PO SCH (20:13)
[2022-09-25] MEDS: ATORVASTATIN CALCIUM 40MG TABLET PO SCH (20:14)
[2022-09-25] MEDS: CEFTRIAXONE 1,000 MG in DEXTROSE 5% WATER 50 ML IV SCH (20:20)
[2022-09-25 22:32] VITALS: BP 147/86; PULSE 68
[2022-09-26] MEDS: LACTULOSE 20G/30ML UDC PO SCH ×3 (07:00→21:08)
[2022-09-26 08:00] VITALS: BP 155/66; PULSE 61; RESP 17; TEMP 97.9
[2022-09-26] MEDS: ENOXAPARIN 60MG/0.6ML SYR SUBCUT SCH ×2 (09:00→21:08)
[2022-09-26] MEDS: FLUOXETINE HCL 10 MG CAPSULE PO SCH (10:08)
[2022-09-26] MEDS: RISPERIDONE 1MG TABLET PO SCH ×2 (10:10→21:08)
[2022-09-26] MEDS: FAMOTIDINE 20MG TABLET PO SCH (10:10)
[2022-09-26] MEDS: DOCUSATE SODIUM 100MG CAPSULE PO SCH ×2 (10:10→18:34)
[2022-09-26] MEDS: AMLODIPINE 10MG TABLET PO SCH (10:10)
[2022-09-26 20:19] VITALS: BP 134/76; PULSE 86; RESP 17; TEMP 97.2
[2022-09-26] MEDS: LITHIUM CARBONATE 150 MG CAPSULE PO SCH (21:08)
[2022-09-26] MEDS: TRAZODONE HCL 50MG TABLET PO SCH (21:08)
[2022-09-26] MEDS: ATORVASTATIN CALCIUM 40MG TABLET PO SCH (21:08)
[2022-09-27] MEDS: LACTULOSE 20G/30ML UDC PO SCH ×3 (06:00→20:55)
[2022-09-27 08:00] VITALS: BP 151/62; PULSE 72; RESP 17; TEMP 96.3
[2022-09-27] MEDS: FAMOTIDINE 20MG TABLET PO SCH (09:00)
[2022-09-27] MEDS: ENOXAPARIN 60MG/0.6ML SYR SUBCUT SCH (09:00)
[2022-09-27] MEDS: RISPERIDONE 1MG TABLET PO SCH ×2 (09:00→20:54)
[2022-09-27] MEDS: FLUOXETINE HCL 10 MG CAPSULE PO SCH (09:00)
[2022-09-27] MEDS: DOCUSATE SODIUM 100MG CAPSULE PO SCH ×2 (09:00→16:05)
[2022-09-27] MEDS: AMLODIPINE 10MG TABLET PO SCH (09:00)
[2022-09-27] MEDS ORDERED: HALOPERIDOL LACTATE 5MG/ML VIAL IM NR ×2 (14:15)
[2022-09-27] MEDS ORDERED: QUETIAPINE FUMARATE 25MG TABLET PO NR (14:30)
[2022-09-27] MEDS ORDERED: QUETIAPINE FUMARATE 25MG TABLET PO PRN (18:15)
[2022-09-27 20:00] VITALS: BP 149/82; PULSE 61; RESP 17; TEMP 99.3
[2022-09-27] MEDS: TRAZODONE HCL 50MG TABLET PO SCH (20:54)
[2022-09-27] MEDS: ATORVASTATIN CALCIUM 40MG TABLET PO SCH (20:54)
[2022-09-27] MEDS: LITHIUM CARBONATE 150 MG CAPSULE PO SCH (20:54)
[2022-09-28] MEDS: LACTULOSE 20G/30ML UDC PO SCH ×3 (05:39→21:05)
[2022-09-28 08:00] VITALS: BP 104/70; PULSE 66; RESP 18; TEMP 96.5
[2022-09-28] MEDS ORDERED: LORAZEPAM 2MG/ML CPJ IV SCH ×2 (09:00)
[2022-09-28] MEDS ORDERED: LORAZEPAM 2MG/ML CPJ IV PRN (09:30)
[2022-09-28] MEDS: DOCUSATE SODIUM 100MG CAPSULE PO SCH ×2 (09:46→17:50)
[2022-09-28] MEDS: RISPERIDONE 1MG TABLET PO SCH ×2 (09:46→21:05)
[2022-09-28] MEDS: FLUOXETINE HCL 10 MG CAPSULE PO SCH (09:46)
[2022-09-28] MEDS: FAMOTIDINE 20MG TABLET PO SCH (09:47)
[2022-09-28] MEDS: AMLODIPINE 10MG TABLET PO SCH (09:47)
[2022-09-28] MEDS: ACETAMINOPHEN 325MG TABLET PO PRN ×2 (09:49→17:51)
[2022-09-28 11:13] LABS: BASOPHILS % 0.4 % (0.0-2.0); EOSINOPHILS % 2.7 % (0.0-5.0); HEMATOCRIT. 34.4 % (36.0-48.0); HEMOGLOBIN. 11.1 g/dL (12.0-16.0); LYMPHOCYTES % 17.1 % (20.0-50.0); MEAN CORPUSCULAR HEMOGLOBIN 28.3 pg (28.0-32.0); MEAN CORPUSCULAR VOLUME 87.8 fL (81.0-99.0); MONOCYTES % 10.9 % (2.0-8.0); NEUTROPHILS % 68.9 % (40.0-76.0); PLATELET 180 x1000/uL (130-400); RED BLOOD CELL COUNT 3.91 mill/uL (4.2-5.4); RED CELL DISTRIBUTION WIDTH 16.1 % (11.6-14.6)
[2022-09-28 11:16] LABS: CHLORIDE 111 mEq/L (98-107)
[2022-09-28 11:20] LABS: INR 1.1; PROTHROMBIN TIME 11.4 sec (9.6-11.0)
[2022-09-28] MEDS: ENOXAPARIN 60MG/0.6ML SYR SUBCUT SCH ×2 (14:27→21:10)
[2022-09-28 19:36] VITALS: BP 102/51; PULSE 58; RESP 20; TEMP 97.4
[2022-09-28] MEDS: ATORVASTATIN CALCIUM 40MG TABLET PO SCH (21:05)
[2022-09-28] MEDS: TRAZODONE HCL 50MG TABLET PO SCH (21:05)
[2022-09-28] MEDS: LITHIUM CARBONATE 150 MG CAPSULE PO SCH (21:05)
[2022-09-29] MEDS: LACTULOSE 20G/30ML UDC PO SCH ×3 (05:26→21:07)
[2022-09-29 08:00] VITALS: BP 162/90; PULSE 80; RESP 20; TEMP 97.7
[2022-09-29] MEDS: FLUOXETINE HCL 10 MG CAPSULE PO SCH (08:45)
[2022-09-29] MEDS: FAMOTIDINE 20MG TABLET PO SCH (08:45)
[2022-09-29] MEDS: DOCUSATE SODIUM 100MG CAPSULE PO SCH ×2 (08:45→16:18)
[2022-09-29] MEDS: AMLODIPINE 10MG TABLET PO SCH (08:45)
[2022-09-29] MEDS: RISPERIDONE 1MG TABLET PO SCH ×2 (08:46→21:06)
[2022-09-29] MEDS: ENOXAPARIN 60MG/0.6ML SYR SUBCUT SCH ×2 (08:46→21:06)
[2022-09-29 19:43] VITALS: BP 134/68; PULSE 67; RESP 20; TEMP 97.1
[2022-09-29] MEDS: ATORVASTATIN CALCIUM 40MG TABLET PO SCH (21:06)
[2022-09-29] MEDS: LITHIUM CARBONATE 150 MG CAPSULE PO SCH (21:06)
[2022-09-29] MEDS: TRAZODONE HCL 50MG TABLET PO SCH (21:06)
[2022-09-30] MEDS: LACTULOSE 20G/30ML UDC PO SCH ×2 (06:30→12:45)
[2022-09-30 08:00] VITALS: BP 167/78; PULSE 76; RESP 18; TEMP 97.7
[2022-09-30] MEDS: DOCUSATE SODIUM 100MG CAPSULE PO SCH ×2 (08:06→16:15)
[2022-09-30] MEDS: ENOXAPARIN 60MG/0.6ML SYR SUBCUT SCH ×2 (08:06→20:59)
[2022-09-30] MEDS: FLUOXETINE HCL 10 MG CAPSULE PO SCH (08:06)
[2022-09-30] MEDS: FAMOTIDINE 20MG TABLET PO SCH (08:07)
[2022-09-30] MEDS: AMLODIPINE 10MG TABLET PO SCH (08:07)
[2022-09-30] MEDS: RISPERIDONE 1MG TABLET PO SCH ×2 (08:07→20:57)
[2022-09-30 20:00] VITALS: BP 136/56; PULSE 78; RESP 18; TEMP 97.5
[2022-09-30] MEDS: LITHIUM CARBONATE 150 MG CAPSULE PO SCH (20:57)
[2022-09-30] MEDS: TRAZODONE HCL 50MG TABLET PO SCH (20:57)
[2022-09-30] MEDS: ATORVASTATIN CALCIUM 40MG TABLET PO SCH (20:57)
[2022-10-01 08:00] VITALS: BP 146/64; PULSE 64; RESP 18; TEMP 96.6
[2022-10-01] MEDS: DOCUSATE SODIUM 100MG CAPSULE PO SCH ×2 (08:22→16:39)
[2022-10-01] MEDS: RISPERIDONE 1MG TABLET PO SCH ×2 (08:23→20:32)
[2022-10-01] MEDS: ENOXAPARIN 60MG/0.6ML SYR SUBCUT SCH ×2 (08:23→20:36)
[2022-10-01] MEDS: AMLODIPINE 10MG TABLET PO SCH (08:23)
[2022-10-01] MEDS: FAMOTIDINE 20MG TABLET PO SCH (08:23)
[2022-10-01] MEDS: FLUOXETINE HCL 10 MG CAPSULE PO SCH (08:25)
[2022-10-01] MEDS: ACETAMINOPHEN 325MG TABLET PO PRN (16:38)
[2022-10-01 20:00] VITALS: BP 124/58; PULSE 75; RESP 19; TEMP 97.9
[2022-10-01] MEDS: ATORVASTATIN CALCIUM 40MG TABLET PO SCH (20:32)
[2022-10-01] MEDS: TRAZODONE HCL 50MG TABLET PO SCH (20:32)
[2022-10-01] MEDS: LITHIUM CARBONATE 150 MG CAPSULE PO SCH (20:32)
[2022-10-02 06:12] LABS: BASOPHILS % 0.7 % (0.0-2.0); EOSINOPHILS % 3.7 % (0.0-5.0); HEMATOCRIT. 33.6 % (36.0-48.0); HEMOGLOBIN. 11.1 g/dL (12.0-16.0); LYMPHOCYTES % 32.7 % (20.0-50.0); MEAN CORPUSCULAR VOLUME 87.7 fL (81.0-99.0); MEAN PLATELET VOLUME 10.9 fl (7.4-10.4); MONOCYTES % 13.1 % (2.0-8.0); NEUTROPHILS % 49.8 % (40.0-76.0); PLATELET 177 x1000/uL (130-400); RED BLOOD CELL COUNT 3.83 mill/uL (4.2-5.4); RED CELL DISTRIBUTION WIDTH 16.4 % (11.6-14.6)
[2022-10-02 06:52] LABS: CHLORIDE 111 mEq/L (98-107)
[2022-10-02 08:00] VITALS: BP 115/71; PULSE 60; RESP 17; TEMP 97.1
[2022-10-02] MEDS: ENOXAPARIN 60MG/0.6ML SYR SUBCUT SCH ×2 (09:45→21:07)
[2022-10-02] MEDS: FLUOXETINE HCL 10 MG CAPSULE PO SCH (09:46)
[2022-10-02] MEDS: FAMOTIDINE 20MG TABLET PO SCH (09:46)
[2022-10-02] MEDS: DOCUSATE SODIUM 100MG CAPSULE PO SCH ×2 (09:46→17:00)
[2022-10-02] MEDS: RISPERIDONE 1MG TABLET PO SCH ×2 (09:47→21:07)
[2022-10-02] MEDS: AMLODIPINE 10MG TABLET PO SCH (09:47)
[2022-10-02] MEDS: ERGOCALCIFEROL 50000UNITS CAPSULE PO SCH (19:10)
[2022-10-02 20:00] VITALS: BP 116/61; PULSE 89; RESP 18; TEMP 97.4
[2022-10-02] MEDS: TRAZODONE HCL 50MG TABLET PO SCH (21:06)
[2022-10-02] MEDS: ATORVASTATIN CALCIUM 40MG TABLET PO SCH (21:07)
[2022-10-02] MEDS: LITHIUM CARBONATE 150 MG CAPSULE PO SCH (21:07)
[2022-10-03 08:00] VITALS: BP 151/76; PULSE 90; RESP 18; TEMP 97.5
[2022-10-03] MEDS: AMLODIPINE 10MG TABLET PO SCH (08:43)
[2022-10-03] MEDS: RISPERIDONE 1MG TABLET PO SCH ×2 (08:43→21:07)
[2022-10-03] MEDS: FLUOXETINE HCL 10 MG CAPSULE PO SCH (08:43)
[2022-10-03] MEDS: FAMOTIDINE 20MG TABLET PO SCH (08:43)
[2022-10-03] MEDS: DOCUSATE SODIUM 100MG CAPSULE PO SCH ×2 (08:43→18:07)
[2022-10-03] MEDS: ENOXAPARIN 60MG/0.6ML SYR SUBCUT SCH ×2 (08:44→21:08)
[2022-10-03 20:12] VITALS: BP 130/62; PULSE 72; RESP 17; TEMP 97.7
[2022-10-03] MEDS: ATORVASTATIN CALCIUM 40MG TABLET PO SCH (21:06)
[2022-10-03] MEDS: TRAZODONE HCL 50MG TABLET PO SCH (21:06)
[2022-10-03] MEDS: LITHIUM CARBONATE 150 MG CAPSULE PO SCH (21:07)
[2022-10-04 06:48] LABS: HEMATOCRIT. 32.8 % (36.0-48.0); HEMOGLOBIN. 10.8 g/dL (12.0-16.0); MEAN CORPUSCULAR HEMOGLOBIN 28.9 pg (28.0-32.0); MEAN CORPUSCULAR VOLUME 87.7 fL (81.0-99.0); MEAN PLATELET VOLUME 9.8 fl (7.4-10.4); PLATELET 169 x1000/uL (130-400); RED BLOOD CELL COUNT 3.73 mill/uL (4.2-5.4); RED CELL DISTRIBUTION WIDTH 16.3 % (11.6-14.6)
[2022-10-04 08:00] VITALS: BP 144/76; PULSE 68; RESP 17; TEMP 97.1
[2022-10-04] MEDS: DOCUSATE SODIUM 100MG CAPSULE PO SCH (09:09)
[2022-10-04] MEDS: FLUOXETINE HCL 10 MG CAPSULE PO SCH (09:09)
[2022-10-04] MEDS: FAMOTIDINE 20MG TABLET PO SCH (09:09)
[2022-10-04] MEDS ORDERED: TRAZ-251 PO (09:10)
[2022-10-04] MEDS ORDERED: RISP1 PO (09:10)
[2022-10-04] MEDS: RISPERIDONE 1MG TABLET PO SCH (09:10)
[2022-10-04] MEDS: AMLODIPINE 10MG TABLET PO SCH (09:10)
[2022-10-04] MEDS: ENOXAPARIN 60MG/0.6ML SYR SUBCUT SCH (09:10)
[2022-10-04 09:51] VITALS: BP 144/76; PULSE 68; TEMP 97.1; O2SAT 97
[2022-10-04 16:40] LABS: NUCLEATED RED BLOOD CELLS 1 /100 WBC; PLATELET ESTIMATE NORMAL
== END 2022-10-04 11:18 | disposition home health service (06) | DRG 71 ==
PROVIDERS: ADMIT Physical Medicine & Rehabilitation Spinal Cord Injury Medicine; ATTEND Internal Medicine
DX: G93.41 Metabolic encephalopathy (principal); C25.9 Malignant neoplasm of pancreas, unspecified; F03.93 Unspecified dementia, unspecified severity, with mood disturbance; K80.00 Calculus of gallbladder with acute cholecystitis without obstruction; R47.01 Aphasia; E72.20 Disorder of urea cycle metabolism, unspecified; R13.10 Dysphagia, unspecified; K76.9 Liver disease, unspecified; I50.9 Heart failure, unspecified; I11.0 Hypertensive heart disease with heart failure; F20.9 Schizophrenia, unspecified; E78.00 Pure hypercholesterolemia, unspecified; E55.9 Vitamin D deficiency, unspecified; K21.9 Gastro-esophageal reflux disease without esophagitis; I25.10 Atherosclerotic heart disease of native coronary artery without angina pectoris; I48.0 Paroxysmal atrial fibrillation; D64.9 Anemia, unspecified; R53.81 Other malaise; R79.89 Other specified abnormal findings of blood chemistry; R47.1 Dysarthria and anarthria; R26.9 Unspecified abnormalities of gait and mobility; E87.6 Hypokalemia; R73.9 Hyperglycemia, unspecified; R74.01 Elevation of levels of liver transaminase levels; F31.9 Bipolar disorder, unspecified; I65.29 Occlusion and stenosis of unspecified carotid artery; Z95.1 Presence of aortocoronary bypass graft; Z86.73 Personal history of transient ischemic attack (TIA), and cerebral infarction without residual deficits
CPT/HCPCS: 36415; 80048; 80053; 80076; 80178; 81003; 82140; 82248; 82306; 82607; 82728; 82746; 83036; 83540; 83550; 84134; 84443; 85025; 92523; 92610; 93970; 97110; 97116; 97162; 97166; 97530; 97535; 97542; C1893; J0696; J1650; J7060